=== PATIENT | female | born 1950 | race Caucasian/White ===

== ENCOUNTER 2019-04-21 06:49 | Inpatient (IN) | payer MEDICARE ==
[2019-04-20 09:58] LABS: EOSINOPHILS % (AUTO) 1.1 % (0-6); HEMATOCRIT 42.2 % (35.0-45.0); HEMOGLOBIN 14.2 g/dl (12.0-16.0); LYMPHOCYTES # (AUTO) 0.8 X10'3 (1.1-4.8); LYMPHOCYTES % (AUTO) 21.2 % (21-51); MEAN CORPUSCULAR HEMOGLOBIN 31.8 PG (27.0-31.0); MEAN CORPUSCULAR HGB CONC 33.6 g/dL (33.0-36.5); MEAN CORPUSCULAR VOLUME 94.5 FL (78-98); MEAN PLATELET VOLUME 8.7 FL (7.4-10.4); MONOCYTES # (AUTO) 0.5 X10'3 (0-0.9); MONOCYTES % (AUTO) 12.8 % (2-12); NEUTROPHILS # (AUTO) 2.4 X10'3 (1.8-7.7); NEUTROPHILS % (AUTO) 63.9 % (42-75); PLATELET COUNT 175 X10'3 (140-440); RED BLOOD COUNT 4.46 X10'6 (4.20-5.60); RED CELL DISTRIBUTION WIDTH 14.1 % (11.5-14.5); WHITE BLOOD COUNT 3.8 X10'3 (4.5-11.0)
[2019-04-20 10:04] LABS: ALBUMIN 3.9 G/DL (3.4-5.0); ANION GAP 5 (8-16); BLOOD UREA NITROGEN 22 MG/DL (7-18); BUN/CREATININE RATIO 34.9 (6.6-38.0); CALCIUM 8.6 MG/DL (8.5-10.1); CHLORIDE 108 MMOL/L (99-107); CREATININE 0.63 MG/DL (0.40-0.90); GLUCOSE 79 MG/DL (70-104); PARTIAL THROMBOPLASTIN TIME 29 SECONDS (22-32); POTASSIUM 4.2 MMOL/L (3.5-5.1); SODIUM 143 MMOL/L (135-145); TOTAL CARBON DIOXIDE 29.8 MMOL/L (24-32); eGFR > 90 ML/MIN
[~2019-04-21] VITALS: Ht 164.5 cm; Wt 105.1 kg
[2019-04-21] VITALS (17 sets, daily range): BP systolic 85–125; BP diastolic 49–81
[2019-04-21] MEDS ORDERED: MULT-955 PO (07:28)
[2019-04-21] MEDS ORDERED: FOLI0.4T2 PO (07:28)
[2019-04-21] MEDS ORDERED: ASPI-1094 PO (07:28)
[2019-04-21] MEDS ORDERED: CALC-729 PO (07:28)
[2019-04-21] MEDS ORDERED: CHOL20003 PO (07:28)
[2019-04-21] MEDS ORDERED: PHEN100C4 PO ×2 (07:28)
[2019-04-21] MEDS: normal saline 1000ml 1,000 ML IV SCH ×3 (07:35→19:11)
[2019-04-21] MEDS ORDERED: clindamycin phosphate 150mg/ml inj. ONE (09:21)
[2019-04-21] MEDS ORDERED: clindamycin 600mg/D5W 50ml 50 ML IV ONE (09:21)
[2019-04-21] MEDS ORDERED: midazolam 2 mg/2 ml injection ONE ×2 (09:22→12:03)
[2019-04-21] MEDS ORDERED: fentaNYL/PF 50MCG/1 ML 2ML syringe ONE ×2 (09:22→12:03)
[2019-04-21] MEDS ORDERED: CLINDAMYCIN/D5W 900mg/50ml 50 ML IV ONE (09:30)
[2019-04-21] MEDS ORDERED: CHLOROprocaine 20mg/ml injection SQ ONE (09:45)
[2019-04-21] MEDS ORDERED: diphenhydrAMINE 50 mg/ml inj ONE (09:50)
[2019-04-21] MEDS ORDERED: hydrocortisone sod succ/PF 100mg/2ml inj. ONE (10:15)
[2019-04-21] MEDS ORDERED: DOPamine 400mg/D5W 250ml 250 ML IV ONE (11:05)
[2019-04-21] MEDS ORDERED: ondansetron/PF 4mg/2ml inj ONE (11:15)
[2019-04-21] MEDS ORDERED: vancomycin 1,000mg inj ONE (11:52)
--- NOTE | 2019-04-21 12:20 | NUR ---
PATIENT WENT TO ICU. ALL BELONGINGS WERE UNDER HER GURNEY.
[2019-04-21] MEDS: HYDROcodone/acetaminophen 5mg/325mg tablet PO PRN (14:05)
[2019-04-21 14:56] LABS: BASOPHILS % (AUTO) 0.1 % (0-1); EOSINOPHILS % (AUTO) 0.1 % (0-6); HEMATOCRIT 38.9 % (35.0-45.0); HEMOGLOBIN 13.2 g/dl (12.0-16.0); LYMPHOCYTES # (AUTO) 0.4 X10'3 (1.1-4.8); LYMPHOCYTES % (AUTO) 4.5 % (21-51); MEAN CORPUSCULAR HEMOGLOBIN 32.4 PG (27.0-31.0); MEAN CORPUSCULAR VOLUME 95.4 FL (78-98); MEAN PLATELET VOLUME 8.8 FL (7.4-10.4); MONOCYTES # (AUTO) 0.1 X10'3 (0-0.9); MONOCYTES % (AUTO) 1.7 % (2-12); NEUTROPHILS # (AUTO) 7.6 X10'3 (1.8-7.7); NEUTROPHILS % (AUTO) 93.6 % (42-75); PLATELET COUNT 142 X10'3 (140-440); RED BLOOD COUNT 4.07 X10'6 (4.20-5.60); RED CELL DISTRIBUTION WIDTH 14.4 % (11.5-14.5); WHITE BLOOD COUNT 8.1 X10'3 (4.5-11.0)
[2019-04-21] MEDS: HYDROcodone/acetaminophen 10/325mg tab PO PRN (15:32)
[2019-04-21] MEDS ORDERED: morphine 2 MG/ML inj. syringe IV PRN (18:15)
--- NOTE | 2019-04-21 18:20 | NUR ---
dr. fatima at bedside with riccardo RN, patients blood pressure currently 84/44 dr. fatima verbal order for riccardo RN for ns blous 500Ml and to call in an hour for re assessment. md aware of hypotension
[2019-04-21] MEDS ORDERED: normal saline 1000ml 1,000 ML IV SCH (18:30)
--- NOTE | 2019-04-21 18:30 | NUR ---
assumed care from Maciel ASHTON no questions or concerns after assuming care
--- NOTE | 2019-04-21 18:48 | NUR ---
mathematics technician at bedside performing echo patients rr even un labored no observable s/s of acute stress at this time
[2019-04-21] MEDS ORDERED: phenytoin sod ER 100mg capsule PO SCH (19:20)
--- NOTE | 2019-04-21 19:41 | NUR ---
on phone with answering service, due to patients hypotension and nausea, attendance secretary stated the message will be sent , MARIBELL mims
[2019-04-21] MEDS: DOPamine 400mg/D5W 250ml 250 ML IV SCH (19:50)
[2019-04-21] MEDS ORDERED: ondansetron/PF 4mg/2ml inj IV PRN (19:55)
--- NOTE | 2019-04-21 20:00 | NUR ---
spoke with dr. fatima about hypotension telephone order for dopamine, dr. fatima aware patient has a piv will moniter for s/s iv infiltration
--- NOTE | 2019-04-21 20:51 | NUR ---
patient asleep in bed refusing medication stated " i need to sleep." patient rr even un labored no observable s/s of acute stress at this time
--- NOTE | 2019-04-21 22:16 | NUR ---
patient in bed eyes closed rr even un labored no s/s of acute stress at this time
[2019-04-22] VITALS (24 sets, daily range): BP systolic 79–106; BP diastolic 47–63
[2019-04-22] MEDS: normal saline 1000ml 1,000 ML IV SCH ×4 (01:43→23:30)
--- NOTE | 2019-04-22 01:51 | NUR ---
PATIENT IN BED EYES CLOSED RR EVEN UNLABORED NO OBSERVABLE S/S OF ACUTE STRESS AT THIS TIME
--- NOTE | 2019-04-22 04:37 | NUR ---
PATIENT AWAKE WHILE CHECKING DRESSINGS AND DRAIN APPEARS TO BE IN [employer] SPIRITS ,RR EVEN UN LABORED NO OBSERVABLE S/S OF ACUTE STRESS AT THIS TIME
[2019-04-22 04:59] LABS: BASOPHILS % (AUTO) 0 % (0-1); EOSINOPHILS % (AUTO) 0 % (0-6); HEMATOCRIT 36.3 % (35.0-45.0); HEMOGLOBIN 12.3 g/dl (12.0-16.0); LYMPHOCYTES # (AUTO) 0.4 X10'3 (1.1-4.8); LYMPHOCYTES % (AUTO) 3.3 % (21-51); MEAN CORPUSCULAR HEMOGLOBIN 32.3 PG (27.0-31.0); MEAN CORPUSCULAR VOLUME 94.9 FL (78-98); MEAN PLATELET VOLUME 9.1 FL (7.4-10.4); MONOCYTES # (AUTO) 1.2 X10'3 (0-0.9); MONOCYTES % (AUTO) 9.1 % (2-12); NEUTROPHILS # (AUTO) 11.1 X10'3 (1.8-7.7); NEUTROPHILS % (AUTO) 87.6 % (42-75); PLATELET COUNT 130 X10'3 (140-440); RED BLOOD COUNT 3.82 X10'6 (4.20-5.60); RED CELL DISTRIBUTION WIDTH 14.2 % (11.5-14.5); WHITE BLOOD COUNT 12.7 X10'3 (4.5-11.0)
[2019-04-22 05:00] LABS: PARTIAL THROMBOPLASTIN TIME 30 SECONDS (22-32)
[2019-04-22 05:16] LABS: ALANINE AMINOTRANSFERASE 29 U/L (12-78); ALBUMIN 2.9 G/DL (3.4-5.0); ALKALINE PHOSPHATASE 86 IU/L (46-116); ANION GAP 10 (8-16); ASPARTATE AMINO TRANSFERASE 27 U/L (10-37); BILIRUBIN,TOTAL 0.4 MG/DL (0.1-1.0); BLOOD UREA NITROGEN 18 MG/DL (7-18); BUN/CREATININE RATIO 25.4 (6.6-38.0); CALCIUM 8.2 MG/DL (8.5-10.1); CHLORIDE 112 MMOL/L (99-107); CREATININE 0.71 MG/DL (0.40-0.90); GLUCOSE 178 MG/DL (70-104); MAGNESIUM 1.7 MG/DL (1.5-2.4); POTASSIUM 3.8 MMOL/L (3.5-5.1); SODIUM 144 MMOL/L (135-145); TOTAL PROTEIN 5.9 G/DL (6.4-8.2); eGFR 82 ML/MIN
--- NOTE | 2019-04-22 06:15 | NUR ---
Patient in room CICU 2007. I have received report from night coordinator and had the opportunity to ask questions and assume patient care.
--- NOTE | 2019-04-22 06:25 | NUR ---
SBAR LYDIA BABB NO QUESTIONS OR CONCERNS AFTER ASSUMING CARE
[2019-04-22] MEDS: multivitamins, therapeutics tablet PO SCH (08:00)
[2019-04-22] MEDS: aspirin 325mg tablet, delayed-release (Ecotrin) PO SCH (08:28)
[2019-04-22] MEDS: cholecalciferol (vitamin D) 400 unit tablet PO SCH (08:28)
[2019-04-22] MEDS: folic acid 1mg tablet PO SCH (08:28)
[2019-04-22] MEDS: calcium carbonate 500mg tablet PO SCH (08:30)
[2019-04-22] MEDS ORDERED: phenytoin sod ER 100mg capsule PO SCH ×3 (09:39→13:19)
[2019-04-22] MEDS: DOPamine 400mg/D5W 250ml 250 ML IV SCH ×2 (09:51→23:52)
[2019-04-22] MEDS ORDERED: midodrine tablet 2.5 MG TABLET PO ONE (12:47)
[2019-04-22] MEDS: HYDROcodone/acetaminophen 5mg/325mg tablet PO PRN ×2 (14:17→18:08)
[2019-04-22] MEDS ORDERED: [UNRECOGNIZED DRUG - OTHER] PO SCH (15:10)
--- NOTE | 2019-04-22 18:15 | NUR ---
Problems reprioritized. Patient report given, questions answered & plan of care reviewed with oncoming shift.
[2019-04-22] MEDS ORDERED: vancomycin/NS 1 GM ADD-VANTAGE 250 ML IV ONE (18:35)
--- NOTE | 2019-04-22 18:42 | NUR ---
ASSUMED CARE FROM HOLLEY ASHTON NO QUESTIONS OR CONCERNS AFTER ASSUMING CARE
[2019-04-22] MEDS: midodrine 5mg tablet PO SCH (21:23)
--- NOTE | 2019-04-22 21:28 | NUR ---
patient in bed eyes closed rr even un labored no observable s/s of acute stress at this time
[2019-04-23] VITALS (20 sets, daily range): BP systolic 81–127; BP diastolic 49–77
--- NOTE | 2019-04-23 00:41 | NUR ---
patient supine in bed hob at 30 degrees covers on rr even un labored no observable s/s of acute stress at this time
[2019-04-23] MEDS: HYDROcodone/acetaminophen 10/325mg tab PO PRN (02:42)
--- NOTE | 2019-04-23 04:02 | NUR ---
PATIENT IN BED WHEN ASKED HOW THE PATIENTS HEADACHE WAS FEELING PATIENT STATED " I AM PERFECT." PATIENTS RR EVEN UN LABORED NO OBSERVABLE S/S OF ACUTE STRESS AT THIS TIME
[2019-04-23 05:25] LABS: BASOPHILS % (AUTO) 0.3 % (0-1); EOSINOPHILS % (AUTO) 0.1 % (0-6); HEMATOCRIT 32.9 % (35.0-45.0); HEMOGLOBIN 11.2 g/dl (12.0-16.0); LYMPHOCYTES # (AUTO) 0.8 X10'3 (1.1-4.8); LYMPHOCYTES % (AUTO) 10.3 % (21-51); MEAN CORPUSCULAR HEMOGLOBIN 32.3 PG (27.0-31.0); MEAN CORPUSCULAR HGB CONC 33.9 g/dL (33.0-36.5); MEAN CORPUSCULAR VOLUME 95.2 FL (78-98); MONOCYTES # (AUTO) 0.9 X10'3 (0-0.9); MONOCYTES % (AUTO) 11.4 % (2-12); NEUTROPHILS # (AUTO) 6.3 X10'3 (1.8-7.7); NEUTROPHILS % (AUTO) 77.9 % (42-75); PLATELET COUNT 100 X10'3 (140-440); RED BLOOD COUNT 3.46 X10'6 (4.20-5.60); RED CELL DISTRIBUTION WIDTH 14.6 % (11.5-14.5); WHITE BLOOD COUNT 8.1 X10'3 (4.5-11.0)
[2019-04-23] MEDS: normal saline 1000ml 1,000 ML IV SCH ×3 (05:30→21:25)
[2019-04-23 05:35] LABS: ALBUMIN 2.5 G/DL (3.4-5.0); ANION GAP 10 (8-16); BLOOD UREA NITROGEN 13 MG/DL (7-18); BUN/CREATININE RATIO 22.8 (6.6-38.0); CALCIUM 7.4 MG/DL (8.5-10.1); CHLORIDE 113 MMOL/L (99-107); CREATININE 0.57 MG/DL (0.40-0.90); GLUCOSE 103 MG/DL (70-104); MAGNESIUM 1.6 MG/DL (1.5-2.4); POTASSIUM 3.5 MMOL/L (3.5-5.1); SODIUM 143 MMOL/L (135-145); TOTAL CARBON DIOXIDE 20.4 MMOL/L (24-32); eGFR > 90 ML/MIN
--- NOTE | 2019-04-23 05:48 | NUR ---
patient in bed supine covers on eyes closed rr even un labored no observable s/s of acute stress at this time
--- NOTE | 2019-04-23 06:26 | NUR ---
SBAR to Merari RN no questions or concerns after giving report
[2019-04-23] MEDS: folic acid 1mg tablet PO SCH (07:52)
[2019-04-23] MEDS: midodrine 5mg tablet PO SCH ×2 (07:53→20:58)
[2019-04-23] MEDS: clindamycin 150mg capsule PO SCH ×3 (07:53→21:21)
[2019-04-23] MEDS: multivitamins, therapeutics tablet PO SCH (08:00)
[2019-04-23] MEDS: calcium carbonate 500mg tablet PO SCH (08:00)
[2019-04-23] MEDS: cholecalciferol (vitamin D) 400 unit tablet PO SCH (08:00)
[2019-04-23] MEDS: aspirin 325mg tablet, delayed-release (Ecotrin) PO SCH (08:00)
[2019-04-23] MEDS: DOPamine 400mg/D5W 250ml 250 ML IV SCH (13:53)
--- NOTE | 2019-04-23 18:11 | NUR ---
Pt transferred to Room 311. Report given to Koki (RN)
[2019-04-23] MEDS: lactobacillus rhamnosus 10,000 MMU CELLS/CAPSULE PO SCH (20:58)
--- NOTE | 2019-04-23 21:44 | NUR ---
Patient in room MED 311. I have received report from Clarisse ASHTON and had the opportunity to ask questions and assume patient care. Addendum: 04/23/19 at 2145 by Jillian Colunga RN disregard time, received report at 1800
[2019-04-23] MEDS ORDERED: phenytoin sod ER 100mg capsule PO SCH (23:00)
[2019-04-24 02:00] VITALS: BP 92/60
[2019-04-24] MEDS: clindamycin 150mg capsule PO SCH ×3 (02:42→14:14)
--- NOTE | 2019-04-24 06:00 | NUR ---
Preceptee documentation: I have reviewed and agree with all interventions, assessments performed and documented by POLI Gaston.
--- NOTE | 2019-04-24 06:00 | NUR ---
Patient in room MED 307. I have received report from POLI Osuna and POLI Gaston "O", and had the opportunity to ask questions and assume patient care.
--- NOTE | 2019-04-24 06:00 | NUR ---
Problems reprioritized. Patient report given, questions answered & plan of care reviewed with POLI Wong.
[2019-04-24 06:35] VITALS: BP 107/41
[2019-04-24] MEDS: lactobacillus rhamnosus 10,000 MMU CELLS/CAPSULE PO SCH (07:14)
[2019-04-24] MEDS: folic acid 1mg tablet PO SCH (07:14)
[2019-04-24] MEDS: aspirin 325mg tablet, delayed-release (Ecotrin) PO SCH (07:16)
[2019-04-24] MEDS: midodrine 5mg tablet PO SCH (07:17)
[2019-04-24] MEDS: calcium carbonate 500mg tablet PO SCH (07:17)
[2019-04-24] MEDS: HYDROcodone/acetaminophen 5mg/325mg tablet PO PRN (07:18)
[2019-04-24] MEDS: normal saline 1000ml 1,000 ML IV SCH ×2 (07:39→13:01)
[2019-04-24] MEDS: cholecalciferol (vitamin D) 400 unit tablet PO SCH (08:00)
[2019-04-24] MEDS: multivitamins, therapeutics tablet PO SCH (08:00)
[2019-04-24] MEDS ORDERED: MIDO5TAB4 PO (09:25)
[2019-04-24] MEDS ORDERED: CLE150C PO (09:25)
[2019-04-24 11:00] VITALS: BP 88/49
--- NOTE | 2019-04-24 15:11 | NUR ---
Per Dr. Mullen, order chest xray PA/LAT to check PPM placement.
--- NOTE | 2019-04-24 16:11 | NUR ---
Per Dr. Polanco, pt stable for discharge. Patient has scheduled follow up with Dr. Polanco on 04/28/19. Faxed prescription to [facility] on [address] in [place]. Patients medications retrieved from pharmacy. PIV discontinued, tip intact, patient has no complaints. Telemetry discontinued. Belongings collected and sent with patient. All discharge instructions reviewed with patient and all questions answered. Wheeled to private vehicle by staff.
== END 2019-04-24 16:30 | disposition home or self-care (01) | DRG 244 ==
LOC: SSTAY O 06:49 → CICU 2S 14:50 → MED 3N 04-23 19:00
PROVIDERS: ADMIT Internal Medicine Cardiovascular Disease; ATTEND Internal Medicine Cardiovascular Disease
PROC: 0JH606Z Insertion of Pacemaker, Dual Chamber into Chest Subcutaneous Tissue and Fascia, Open Approach (ICD-10-PCS; principal; 2019-04-21)
PROC: 02H63JZ Insertion of Pacemaker Lead into Right Atrium, Percutaneous Approach (ICD-10-PCS; 2019-04-21)
PROC: 02HK3JZ Insertion of Pacemaker Lead into Right Ventricle, Percutaneous Approach (ICD-10-PCS; 2019-04-21)
PROC: 0W9D30Z Drainage of Pericardial Cavity with Drainage Device, Percutaneous Approach (ICD-10-PCS; 2019-04-21)
PROC: 4B02XSZ Measurement of Cardiac Pacemaker, External Approach (ICD-10-PCS; 2019-04-24)
DX: T82.110A Breakdown (mechanical) of cardiac electrode, initial encounter (principal); I49.5 Sick sinus syndrome; E78.5 Hyperlipidemia, unspecified; F41.9 Anxiety disorder, unspecified; M81.0 Age-related osteoporosis without current pathological fracture; Y83.8 Other surgical procedures as the cause of abnormal reaction of the patient, or of later complication, without mention of misadventure at the time of the procedure; Y92.89 Other specified places as the place of occurrence of the external cause
CPT/HCPCS: 33010; 33208; 36415; 71045; 71046; 76937; 80048; 80053; 83735; 85025; 85610; 85730; 93005; 93306; 93308; 99152; 99153; A4565; A4620; A6258; A6449; C1729; C1785; C1894; C1898; G0378; J1200; J1265; J1720; J2250; J2270; J2400; J2405; J3010; J3370; J3490; J7030

== ENCOUNTER 2022-08-20 10:49 | Emergency (ER) | payer MEDICARE ==
[~2022-08-20] VITALS: Ht 160 cm; Wt 70.5 kg
[~2022-08-20 10:49] MED LIST: ASPI-1094 PO; CALC-729 PO; CHOL20003 PO; CLE150C PO; FOLI0.4T6 PO; MIDO5TAB4 PO; MULT-955 PO; PHEN100C4 PO
[2022-08-20 10:52] VITALS: BP 129/79
== END 2022-08-20 13:26 | disposition home or self-care (01) ==
LOC: ER 10:49
DX: S00.03XA Contusion of scalp, initial encounter (principal); Z88.1 Allergy status to other antibiotic agents; Z88.7 Allergy status to serum and vaccine; W01.0XXA Fall on same level from slipping, tripping and stumbling without subsequent striking against object, initial encounter; Y93.89 Activity, other specified; Y92.89 Other specified places as the place of occurrence of the external cause; Y99.8 Other external cause status
CPT/HCPCS: 70450; 99284

== ENCOUNTER 2023-09-26 10:18 | Emergency (ER) | payer MEDICARE ==
[~2023-09-26] VITALS: Ht 160 cm; Wt 63.4 kg
[2023-09-26 10:24] VITALS: BP 153/81; PULSE 84; RESP 16; TEMP 98; O2SAT 99
== END 2023-09-26 15:18 | disposition home or self-care (01) ==
LOC: ER 10:19
DX: M25.571 Pain in right ankle and joints of right foot (principal); R60.0 Localized edema; E78.00 Pure hypercholesterolemia, unspecified; F41.9 Anxiety disorder, unspecified; Z88.8 Allergy status to other drugs, medicaments and biological substances; Z88.1 Allergy status to other antibiotic agents; Z79.899 Other long term (current) drug therapy
CPT/HCPCS: 29515; 73590; 99284

== ENCOUNTER 2025-06-13 17:56 | Emergency (ER) | payer MEDICARE ==
[~2025-06-13] VITALS: Ht 160 cm; Wt 70.2 kg
[~2025-06-13 17:56] MED LIST changes: -CALC-729 PO; -CLE150C PO
[2025-06-13 18:01] VITALS: BP 149/74; PULSE 82; RESP 18; O2SAT 100
--- NOTE | 2025-06-13 18:55 | RADIOLOGY REPORT ---
CLINICAL INDICATION: KNEE PAIN RIGHT TECHNIQUE: 5 radiographic views of the right knee were obtained. Comparison: None FINDINGS/IMPRESSION: There is no evidence of acute fracture or dislocation. Moderate medial and lateral knee compartment joint space narrowing without significant osteophytic bony changes. Mild bony spur from the superior pole of the posterior surface of the patella. The alignment is anatomical. There is no radiopaque foreign body.
--- NOTE | 2025-06-13 18:58 | Physician Documentation ---
History of Present Illness ~ Chief Complaint: Trauma Level 3 Stated Complaint: FALL Time Seen by MD: 18:43 Primary Medical Doctor: dr. lui, dr. connelly HPI Patient presents to the emergency room after tripping and falling and striking her right-sided face on the ground. Patient does take aspirin. No loss of consciousness or vomiting. Patient has also suffered pain to her left knee. Tetanus within 5 years?: No Medication Reconciliation Allergies: Coded Allergies: Iodinated Contrast Media (Unverified Allergy, Intermediate, SWELLING IN TONGUE, 06/13/25) Influenza Virus Vaccines (Verified Allergy, Unknown, TONGUE SWELLING, 06/13/25) cephalexin (Verified Allergy, Unknown, HEADACHE, NIGHTMARES, HALLUCINATION, 06/13/25) diphtheria, pertussis, tetanus vacc (Verified Allergy, Unknown, METALLI TASTE, 06/13/25) doxycycline (Verified Allergy, Unknown, CAN'T REMEMBER SYMPTOMS, 06/13/25) epinephrine (Verified Allergy, Unknown, TONGUE SWELLING, 06/13/25) influenza A (H1N1) virus vaccine m-[id number]-split 2008 (Verified Allergy, Unknown, TONGUE SWELLING, 06/13/25) iohexol (Verified Allergy, Unknown, TONGUE SWELLING, 06/13/25) lidocaine (Verified Allergy, Unknown, TONGUE SWELLING, 06/13/25) metronidazole (Verified Allergy, Unknown, 06/13/25) pneumococcal vaccine (Verified Allergy, Unknown, TONGUE SWELLING, 06/13/25) prilocaine (Verified Allergy, Unknown, TONGUE SWELLING, 06/13/25) Uncoded Allergies: PROLENSA (Allergy, Severe, TONGUE TINGLING, SWELLING, 09/26/23) METALDEHYDE (Allergy, Unknown, 04/21/19) RYNATIN (Allergy, Unknown, 04/21/19) TAPE (Allergy, Unknown, RIPS SKIN OFF, 04/21/19) Scheduled Aspirin (Ecotrin), 1 TAB.SR PO DAILY, (Reported) Cholecalciferol (Vitamin D3) (Vitamin D), 2 TAB PO DAILY, (Reported) Folic Acid* (Folic Acid*), 1 MG PO DAILY, (Reported) Midodrine HCl (Midodrine HCl), 5 MG PO BID Multivitamin (Daily Value), 1 TAB PO DAILY, (Reported) Phenytoin Sodium Extended (Dilantin), 300 MG PO SMWFS, (Reported) Phenytoin Sodium Extended (Dilantin), 250 MG PO T Th, (Reported) Past Medical History Past Medical History: Seizures, High Cholesterol, Osteoporosis, Anxiety Past Surgical History: noncontributory, pacemaker Patient History: FH: diabetes mellitus FATHER, , Age: 93 FH: heart disease FATHER, , Age: 93 MOTHER, , Age: 86 FH: leukemia Maternal grandmother Drug Use: none Review of Systems ROS All review of systems negative except as per HPI Physical Exam Vital Signs: Temperature: 97.3, Source: Temporal, Heart Rate: 82, Respiratory Rate: 18, BP: 149/74, Pulse Oximetry: 100, Weight: 70.200 Oxygen Flow Rate: 0 Physical Exam General: Patient is awake, alert, oriented x4 in no acute distress and well appearing.~ Head: Normocephalic with mild swelling and ecchymosis beneath right eye Eyes: Conjunctival normal. EOMI. PERRL. ENT: Mucous membranes moist. No hummel signs, no raccoon eyes, no hemotympanum Neck: Supple, trachea is midline. No cervical midline tenderness Chest: Clear to auscultation bilaterally without rales, rhonchi, or wheezes. There is no accessory muscle use or retractions. Cardiac: RRR without murmurs, gallops, or rubs. Extremities: Normal strength. Normal range of motion. Ecchymosis and mild swelling noted to just inferior to the left patella. Ambulatory without issue Progress Results/Orders Results/Orders Orders - JORJE LUCIANO MD Knee, Complete (06/13/25 18:30) Completed Orders - JORJE LUCIANO MD Knee, Complete (06/13/25 18:30) Vital Signs 06/13/25 06/13/25 06/13/25 18:01 18:57 19:07 Temp 97.3 97.3 97.3 Pulse 82 Resp 18 B/P (MAP) 149/74 Pulse Ox 100 O2 Flow Rate 0 0 Medical Decision Making Additional information obtaine: old records Findings Patient presents to the emergency room after head strike and knee pain after fall. Differentials include but are not limited to fractures, dislocations, epidural bleed, subdural bleed, intraparenchymal bleed. X-ray is negative for acute process in knee and patient is ambulating without issue. Recommended CT scan to patient and discussed the risks benefits of radiation exposure and patient is declining CT scan at this time and would prefer conservative management. ER precautions discussed. She demonstrates capacity. Differential Dx:Considerations: Include: Closed head injury, Cardiac injury, Fracture(s), Intraabdominal injury, Pneumothorax, Cerebral contusion, Pulmonary contusion, Spine injury, Tracheal injury, Urological injury, Vascular injury, Abrasion(s), Contusion(s), Foreign body(s), Hematoma(s), Laceration(s), Encephalopathy, Other Departure Disposition: 01 HOME / SELF CARE / HOMELESS Impression: Primary Impression: Fall Condition: Stable Discharge Instructions: Acute Knee Pain, Adult, Ieyf-[id number] Referrals: NO PRIMARY CARE PROVIDER (PCP) Signature Scribe Signature: no scribe Attestation: The note accurately reflects work and decisions made by me.Jorje Luciano MD 06/13/25 19:05 JORJE LUCIANO MD Jun 13, 2025 18:58
[2025-06-13 19:07] VITALS: TEMP 97.3
== END 2025-06-13 19:08 | disposition home or self-care (01) ==
LOC: ER 17:57
DX: M25.562 Pain in left knee (principal); E78.00 Pure hypercholesterolemia, unspecified; M81.0 Age-related osteoporosis without current pathological fracture; F41.9 Anxiety disorder, unspecified; Z88.1 Allergy status to other antibiotic agents; Z88.7 Allergy status to serum and vaccine; Z91.041 Radiographic dye allergy status; Z95.0 Presence of cardiac pacemaker; Z79.82 Long term (current) use of aspirin; W01.198A Fall on same level from slipping, tripping and stumbling with subsequent striking against other object, initial encounter; Y93.89 Activity, other specified; Y92.89 Other specified places as the place of occurrence of the external cause; Y99.8 Other external cause status
CPT/HCPCS: 73564; 99283